=== PATIENT | female | born 1995 | race African-American/Black ===

== ENCOUNTER 2018-08-10 04:02 | Observation (INO) | payer MEDICAID ==
--- NOTE | 2018-08-10 04:09 | EDPHY ---
H & P Stated Complaint: R flank pain, urgency, retention, Source: Patient - Personal History LMP (Females 10-55): 15-21 Days Ago Current Tetanus Diphtheria and Acellular Pertussis (TDAP): Yes - Medical/Surgical History Hx Asthma: No Hx Chronic Respiratory Disease: No Hx Diabetes: No Hx Cardiac Disease: No Hx Renal Disease: No Hx Cirrhosis: No Hx Alcoholism: No Hx HIV/AIDS: No Hx Splenectomy or Spleen Trauma: No Other PMH: Denies - Social History Smoking Status: Light smoker Time Seen by Provider: 08/10/18 04:09 HPI/ROS: HPI CHIEF COMPLAINT: Right flank pain. Foul smell to urine. HISTORY OF PRESENT ILLNESS: This is a 22-year-old female who is otherwise healthy denies any significant medical history except for history of urinary tract infections. Patient presents emergency room stating that for the past week she noticed a foul smell to her urine with tried to ignore. She also drank large amounts of fluids. However symptoms progressed with further foul- smelling urine, urinary frequency. And now reports that she has some right flank pain. States she developed this earlier this morning she tried to get up and realized that she had right flank pain. Has nausea. No fever denies vomiting. Denies chest pain or shortness of breath. Past Medical History: Denies significant medical history Past Surgical History: Denies significant surgical history Social History: Denies drugs alcohol tobacco. Family History: Noncontributory ROS REVIEW OF SYSTEMS: 10 Systems were reviewed and negative with the exception of the elements mentioned in the history of present illness. Exam Constitutional nontoxic triage nursing summary reviewed, vital signs reviewed, awake/alert. Eyes normal conjunctivae and sclera, EOMI, PERRLA. HENT normal inspection, atraumatic, moist mucus membranes, no epistaxis, neck supple/ no meningismus, no raccoon eyes. Respiratory clear to auscultation bilaterally, normal breath sounds, no respiratory distress, no wheezing. Cardiovascular rate normal, regular rhythm, no murmur, no edema, distal pulses normal. Gastrointestinal soft, non-tender, no rebound, no guarding, normal bowel sounds, no distension, no pulsatile mass. Genitourinary mild right CVA tenderness. Musculoskeletal no midline vertebral tenderness, full range of motion, no calf swelling, no tenderness of extremities, no meningismus, good pulses, neurovascularly intact. Skin pink, warm, & dry, no rash, skin atraumatic. Neurologic awake, alert and oriented x 3, AAOx3, moves all 4 extremities equally, motor intact, sensory intact, CN II-XII intact, normal cerebellar, normal vision, normal speech. Psychiatric normal mood/affect. Heme/Lymph/Immune no lymphadenopathy. Differential Diagnosis: Differential diagnosis includes but is not limited to and in no particular order: Urinary tract infection, Bowel obstruction, appendicitis, gallbladder disease, diverticulitis, colitis, enteritis, perforated viscus, gastritis, GERD, esophagitis, urinary tract infection, pyelonephritis, kidney stones Medical Decision Making: Plan for this patient IV establishment IV fluid bolus 1 L normal saline, basic blood work, UA. Re-evaluate. Re-evaluation: Urinalysis reviewed concerning for pyelonephritis. Given the patient has isolated right flank pain and urinalysis with blood will perform CT scan abdomen pelvis without contrast rule out kidney stone or infected stone. Urine culture sent. [address] scan abdomen pelvis without contrast faxed me by direct Radiology at 5:13 a.m. This shows mild perinephric edema reflect pyelonephritis ascending UTI. Mild bladder wall thickening consistent with cystitis. Additionally there is a jejunal intussusception likely transient. Mild hepatomegaly 528AM: Patient still complaining of right-sided flank pain I have ordered her IV Toradol. Urinalysis reviewed and urine culture sent. 1 g set Rocephin ordered Discussed results with patient. Discussed given her pain, cystitis, pyelonephritis it would be reasonable to admit her for observation today for IV fluids pain control and IV antibiotics. She is agreeable this plan. 0558: Given this patient's pain and ongoing, chills, UTI with pyelo on CT plan for hospital admission today. Patient agrees for this. IV Rocephin given. Hospitalist service consult Dr. Roche Agrees to admit. ([facility]) Constitutional: Initial Vital Signs Temperature (C) 37.1 C 08/10/18 04:05 Heart Rate 96 08/10/18 04:05 Respiratory Rate 19 08/10/18 04:05 Blood Pressure 136/87 H 08/10/18 04:05 O2 Sat (%) 97 08/10/18 04:05 O2 Delivery Mode Room Air Allergies/Adverse Reactions: No Known Allergies Allergy (Verified 08/10/18 08:22) Home Medications: Medication Instructions Recorded Ibuprofen [Motrin (*)] 400 mg PO Q4HRS PRN tab 08/11/18 levOFLOXACIN [levAQUIN (*)] 750 mg PO DAILY #7 tab 08/11/18 Medical Decision Making Other Provider: I received a call from Dr. White with over-read of CT scan, indicating mildly dilated R ureter and IVC, which could be caused by pyelonephritis or possible renal vein thrombosis. The patient is no longer in the ED and has been admitted. I relayed this information to Nette Corbett NP via phone who is currently taking care of this patient. (Uri Rowe) - Data Points Laboratory Results: Laboratory Results 08/10/18 04:25 08/10/18 04:25 Microbiology Results: MICROBIOLOGY 08/10/18 04:15 Urine,Clean Catch Urine Culture - Preliminary Escherichia Coli Two [place] Types Medications Given: Discontinued Medications Sodium Chloride (Ns) 1,000 mls @ 0 mls/hr IV EDNOW ONE; Wide Open PRN Reason: Protocol Stop: 08/10/18 04:15 Last Admin: 08/10/18 05:10 Dose: 1,000 mls Ceftriaxone Sodium/Dextrose (Rocephin 1 Gm (Premix)) 50 mls @ 100 mls/hr IV EDNOW ONE PRN Reason: Protocol Stop: 08/10/18 05:17 Last Admin: 08/10/18 05:10 Dose: 50 mls Sodium Chloride (Ns) 1,000 mls @ 0 mls/hr IV ONCE ONE PRN Reason: Wide Open Stop: 08/10/18 05:24 Last Admin: 08/10/18 05:44 Dose: 1,000 mls Sodium Chloride (Ns) 1,000 mls @ 75 mls/hr IV CONT SIVA Stop: 02/06/19 05:59 Last Admin: 08/10/18 14:43 Dose: 1,000 mls Ceftriaxone Sodium/Dextrose (Rocephin 1 Gm (Premix)) 50 mls @ 100 mls/hr IV Q24H SIVA PRN Reason: Protocol Stop: 09/10/18 04:59 Last Admin: 08/11/18 05:55 Dose: 50 mls Ketorolac Tromethamine (Toradol) 15 mg IVP EDNOW ONE Stop: 08/10/18 05:28 Last Admin: 08/10/18 05:44 Dose: 15 mg Nicotine (Nicoderm Cq) 14 mg TD ONCE ONE Stop: 08/11/18 10:16 Last Admin: 08/11/18 10:13 Dose: 14 mg Oxycodone HCl (Oxycodone Ir) 5 - 10 mg PO Q3HRS PRN PRN Reason: Pain, Severe Able to Take PO Stop: 08/20/18 05:56 Last Admin: 08/10/18 21:51 Dose: 5 mg Departure - Departure Disposition: [facility] Acute Clinical Impression: Acute pyelonephritis Condition: Fair
[2018-08-10] MEDS ORDERED: NS 1,000 ML IV ONE ×2 (04:14→05:23)
[2018-08-10 04:43] LABS: PLATELET COUNT 222 10^3/uL (150-400)
[2018-08-10] MEDS ORDERED: KETOROLAC 15 MG/1 ML SDV IVP ONE (05:27)
[2018-08-10] MEDS ORDERED: ONDANSETRON DISINTEGRATING 4 MG TAB PO PRN (05:57)
[2018-08-10] MEDS ORDERED: IBUPROFEN 200 MG TAB PO PRN (05:57)
[2018-08-10] MEDS ORDERED: ACETAMINOPHEN 325 MG TAB PO PRN (05:57)
[2018-08-10] MEDS ORDERED: ONDANSETRON 4 MG/2 ML VIAL IVP PRN (05:57)
[2018-08-10] MEDS ORDERED: oxyCODONE IR 5 MG TAB PO PRN (05:57)
--- NOTE | 2018-08-10 06:24 | PDGENHP ---
History and Physical - Chief Complaint Flank pain - History of Present Illness 22 yo F presents with flank pain and chills. The patient felt well until she woke up this morning with severe R sided flank pain and chills. She denies dysuria. In the ED her UA is grossly infectious. CT abdomen obtained for evaluation demonstrates R perinephric edema consistent with pyelonephritis. She is hemodynamically stable at this time. She denies medical problems and takes no medications. Case discussed with ED physician Dr. Hallman; records reviewed and summarized above. History Information - Allergies/Home Medication List Allergies/Adverse Reactions: No Known Allergies Allergy (Unverified 08/10/18 04:05) I have personally reviewed and updated: family history, medical history - Past Medical History no pertinent PMH - Surgical History Reports: no pertinent surgical hx - Family History Additional family history: Asked, denies - Social History Smoking Status: Light smoker Review of Systems Review of Systems: ROS: 10pt was reviewed & negative except for what was stated in HPI & below Physical Exam Physical Exam: Temp Pulse Resp BP Pulse Ox 36.8 C 90 18 145/92 H 99 08/10/18 05:48 08/10/18 05:48 08/10/18 05:48 08/10/18 05:48 08/10/18 05:48 Constitutional: appears nourished, uncomfortable Eyes: PERRL, EOMI Ears, Nose, Mouth, Throat: moist mucous membranes, no oral mucosal ulcers Cardiovascular: regular rate and rhythym, no murmur, rub, or gallop Respiratory: no respiratory distress, clear to auscultation Gastrointestinal: normoactive bowel sounds, soft, non-tender abdomen Genitourinary: no bladder tenderness, other (+R CVAT) Skin: warm, normal color Musculoskeletal: full muscle strength, no muscle tenderness Neurologic: AAOx3, CN II-XII Intact Psychiatric: interacting appropriately, not anxious Lab Data & Imaging Review 08/10/18 04:25 08/10/18 04:25 WBC 9.20 10^3/uL (3.80-9.50) 08/10/18 04:25 RBC 4.93 10^6/uL (4.18-5.33) 08/10/18 04:25 Hgb 12.2 g/dL (12.6-16.3) L 08/10/18 04:25 Hct 38.4 % (38.0-47.0) 08/10/18 04:25 MCV 77.9 fL (81.5-99.8) L 08/10/18 04:25 MCH 24.7 pg (27.9-34.1) L 08/10/18 04:25 MCHC 31.8 g/dL (32.4-36.7) L 08/10/18 04:25 RDW 19.1 % (11.5-15.2) H 08/10/18 04:25 Plt Count 222 10^3/uL (150-400) 08/10/18 04:25 MPV 10.7 fL (8.7-11.7) 08/10/18 04:25 Neut % (Auto) 82.1 % (39.3-74.2) H 08/10/18 04:25 Lymph % (Auto) 12.7 % (15.0-45.0) L 08/10/18 04:25 [place] % (Auto) 3.8 % (4.5-13.0) L 08/10/18 04:25 Eos % (Auto) 0.8 % (0.6-7.6) 08/10/18 04:25 Baso % (Auto) 0.4 % (0.3-1.7) 08/10/18 04:25 Nucleat RBC Rel Count 0.0 % (0.0-0.2) 08/10/18 04:25 Absolute Neuts (auto) 7.55 10^3/uL (1.70-6.50) H 08/10/18 04:25 Absolute Lymphs (auto) 1.17 10^3/uL (1.00-3.00) 08/10/18 04:25 Absolute Monos (auto) 0.35 10^3/uL (0.30-0.80) 08/10/18 04:25 Absolute Eos (auto) 0.07 10^3/uL (0.03-0.40) 08/10/18 04:25 Absolute Basos (auto) 0.04 10^3/uL (0.02-0.10) 08/10/18 04:25 Absolute Nucleated RBC 0.00 10^3/uL (0-0.01) 08/10/18 04:25 Immature Gran % 0.2 % (0.0-1.1) 08/10/18 04:25 Immature Gran # 0.02 10^3/uL (0.00-0.10) 08/10/18 04:25 Sodium 139 mEq/L (135-145) 08/10/18 04:25 Potassium 3.8 mEq/L (3.5-5.2) 08/10/18 04:25 Chloride 108 mEq/L (97-110) 08/10/18 04:25 Carbon Dioxide 23 mEq/l (22-31) 08/10/18 04:25 Anion Gap 8 mEq/L (6-14) 08/10/18 04:25 BUN 12 mg/dL (7-23) 08/10/18 04:25 Creatinine 0.8 mg/dL (0.6-1.0) 08/10/18 04:25 Estimated GFR > 60 08/10/18 04:25 Glucose 105 mg/dL (70-100) H 08/10/18 04:25 Calcium 9.1 mg/dL (8.5-10.4) 08/10/18 04:25 Total Bilirubin 0.5 mg/dL (0.1-1.4) 08/10/18 04:25 Conjugated Bilirubin 0.2 mg/dL (0.0-0.5) 08/10/18 04:25 Unconjugated Bilirubin 0.3 mg/dL (0.0-1.1) 08/10/18 04:25 AST 17 IU/L (14-46) 08/10/18 04:25 ALT 21 IU/L (9-52) 08/10/18 04:25 Alkaline Phosphatase 100 IU/L (38-126) 08/10/18 04:25 Total Protein 7.5 g/dL (6.3-8.2) 08/10/18 04:25 Albumin 4.1 g/dL (3.5-5.0) 08/10/18 04:25 Lipase 67 IU/L (23-300) 08/10/18 04:25 Beta HCG, Qual NEGATIVE 08/10/18 04:25 Urine Color YELLOW 08/10/18 04:10 Urine Appearance MODERATELY TURBID 08/10/18 04:10 Urine pH 5.0 (5.0-7.5) 08/10/18 04:10 Ur Specific [place] 1.012 (1.002-1.030) 08/10/18 04:10 Urine Protein 2+ (NEGATIVE) H 08/10/18 04:10 Urine Ketones NEGATIVE (NEGATIVE) 08/10/18 04:10 Urine Blood 3+ (NEGATIVE) H 08/10/18 04:10 Urine Nitrate POSITIVE (NEGATIVE) H 08/10/18 04:10 Urine Bilirubin NEGATIVE (NEGATIVE) 08/10/18 04:10 Urine Urobilinogen NEGATIVE EU (0.2-1.0) 08/10/18 04:10 Ur Leukocyte Esterase 3+ (NEGATIVE) H 08/10/18 04:10 Urine RBC 50-182 /hpf (0-3) H 08/10/18 04:10 Urine WBC 50-182 /hpf (0-3) H 08/10/18 04:10 Ur Epithelial Cells 1+ /lpf (NONE-1+) 08/10/18 04:10 Urine Bacteria TRACE /hpf (NONE SEEN) H 08/10/18 04:10 Urine Mucus TRACE /lpf (NONE-1+) 08/10/18 04:10 Urine Glucose NEGATIVE (NEGATIVE) 08/10/18 04:10 Assessment & Plan Assessment: 22 yo F presents with pyelonephritis. Plan: 1. Pyelonephritis - Presents with chills and R flank pain. UA is grossly infectious appearing and CT (personally reviewed/interpreted) demonstrates R perinephric edema. - Admit for observation - CTX 1 g qD - Blood and urine cultures ordered - Continue IVF Diet -Regular Code - Full Ppx - Low risk, ambulate TID Dispo - Admit under observation status
[2018-08-10] MEDS: NS 1,000 ML IV SCH ×2 (07:57→14:43)
--- NOTE | 2018-08-10 09:22 | ASMTCMCOM ---
CM Note CM Note Notes: Pt is a 22 y/o female admitted for flank pain. Pt is currently on ivabx. It is uncertain if pt will require ivabx at time of d/c. CM available w/ assistance to set up outpatient infusion or home infusion services. Date Signed: 08/10/2018 09:22 AM Electronically Signed By:GERALD Viramontes
--- NOTE | 2018-08-10 15:20 | HOSPPROG ---
Hospitalist Progress Note Assessment/Plan: 22 yo F presents with flank pain and chills. The patient felt well until she woke up with severe R sided flank pain and chills. She denies dysuria. CT abdomen obtained for evaluation demonstrates R perinephric edema consistent with pyelonephritis. First encounter, chart reviewed. *Pyelonephritis - Ceftriaxone - Blood and urine cultures pending - Continue IVF -reviewed w Alejandra the importance of going to the bathroom after sexual activity, wiping from front to back *concern for right renal vein thrombosis, dilated r ureter, r IVC dilated -recommendation is for a CT scan w contrast *morbid obesity -BMI is 41 *Cannibis use *plan: will obtain a CT to further evaluate the above, >30 minutes f/u care Subjective: Alejandra is feeling much better after getting fluids. Pain is better w anti-inflammatory. Objective: Vital Signs Temp Pulse Resp BP Pulse Ox 37.3 C 94 16 90/74 L 94 08/10/18 11:21 08/10/18 11:21 08/10/18 11:21 08/10/18 11:21 08/10/18 11:21 08/09/18 08/10/18 08/11/18 05:59 05:59 05:59 Intake Total 2000 Output Total 500 Balance 1500 - Physical Exam Constitutional: no apparent distress, appears nourished, not in pain, obese Eyes: PERRL Ears, Nose, Mouth, Throat: hearing normal Cardiovascular: regular rate and rhythym Respiratory: no respiratory distress Gastrointestinal: normoactive bowel sounds Skin: warm Musculoskeletal: full muscle strength Neurologic: AAOx3 Psychiatric: interacting appropriately ICD10 Worksheet Patient Problems: Problems Problem Status Onset Acute pyelonephritis Acute
[2018-08-10] MEDS ORDERED: IOHEXOL 300 mgI/ML (OMNIPAQUE) 150 ML BTL IV ONE (16:41)
[2018-08-11 08:21] VITALS: BP 121/94
[2018-08-11] MEDS ORDERED: NICOTINE 21 MG/24 HR PATCH TD ONE (09:53)
[2018-08-11] MEDS ORDERED: NICOTINE 14 MG/24 HR PATCH TD ONE (10:15)
--- NOTE | 2018-08-11 10:21 | HOSPPROG ---
Hospitalist Progress Note Assessment/Plan: 22 yo F presents with flank pain and chills. The patient felt well until she woke up with severe R sided flank pain and chills. She denies dysuria. CT abdomen obtained for evaluation demonstrates R perinephric edema consistent with pyelonephritis. First encounter, chart reviewed. *Pyelonephritis - Ceftriaxone - Blood cultures pending -urine culture shows e coli *concern for right renal vein thrombosis, dilated r ureter -CT scan w contrast shows no thrombosis *morbid obesity -BMI is 41 *Cannibis use *nicotine dependence *plan: dc home, with f[facility], CM made her an appt. Reviewed w her the side effects of Levaquin. Subjective: Alejandra is feeling well, no c/o pain. Objective: Vital Signs Temp Pulse Resp BP Pulse Ox 36.9 C 77 16 121/94 H 96 08/11/18 08:00 08/11/18 08:00 08/11/18 08:00 08/11/18 08:00 08/11/18 08:00 08/10/18 08/11/18 08/12/18 05:59 05:59 05:59 Intake Total 2500 Output Total 500 Balance 2000 - Physical Exam Constitutional: no apparent distress, obese Eyes: PERRL Ears, Nose, Mouth, Throat: hearing normal Respiratory: no respiratory distress Skin: warm Musculoskeletal: full muscle strength Neurologic: AAOx3 Psychiatric: interacting appropriately ICD10 Worksheet Patient Problems: Problems Problem Status Onset Acute pyelonephritis Acute
--- NOTE | 2018-08-11 10:47 | ASMTLACE ---
[facility] Length of stay for Answers: 1 day current admission Acuity / Level of Answers: No Care: Did the patient have an inpatient admission? Comorbidities - select Answers: Opioid dependence all that apply / Chronic pain # of Emergency department Answers: 1-2 visits in the last 6 months Social determinants Answers: Mental health diagnosis (anxiety, depression, pers onality disorders, etc.) Score: 9 Date Signed: 08/11/2018 10:47 AM Electronically Signed By:GERALD Viramontes
--- NOTE | 2018-08-11 10:50 | ASMTCMCOM ---
ZACH Note ZACH Note Notes: Pts case discussed w/ Nette Corbett NP. Pt is being d/c'd today. CM made pt a [facility]. CM provided pt w/ the appointment time and date. [facility] [address] [place] [id number] Cecilia Ford NP 08/15/18 at 10:45AM Please bring your photo ID, insurance card, co pay, list of all meds and hospital d/c paperwork. Date Signed: 08/11/2018 10:49 AM Electronically Signed By:GERALD Viramontes
--- NOTE | 2018-08-11 11:00 | GDS ---
[f rep st] DISCHARGE SUMMARY DISCHARGE DIAGNOSES: 1. Acute pyelonephritis. 2. Initial concern for right renal thrombosis, dilated right ureter. 3. Morbid obesity. 4. Cannabis use. 5. Nicotine dependence. HISTORY OF PRESENT ILLNESS: Briefly, the patient is a very sweet 22-year-old female who presented wi th flank pain and chills. She woke up with severe right-sided flank pain. A CT of the abdomen was o btained for evaluation and noted that she had right perinephric edema consistent with pyelonephritis. In addition, there was concern that she had a dilated right ureter and a right vein thrombosis. A CT scan was performed with contrast that showed no thrombosis. Today, she is feeling markedly better . She will be discharged home. HOSPITAL COURSE: 1. Pyelonephritis. She was treated with ceftriaxone. Her urine culture shows E coli. Her blood cu ltures are pending. 2. Concern for renal vein thrombosis, dilated right ureter. CT scan does not note this. 3. Morbid obesity. She has a BMI of 41. 4. Cannabis use ongoing. 5. Nicotine dependence. Encouraged her to completely stop smoking. DISCHARGE CONDITION: Stable. Blood pressure is 121/94, heart rate is 77, respiratory rate of 16, O2 sats on room air 96%, temperature is 36.9 Celsius. MEDICATIONS AT DISCHARGE: Please see the EMR. DISCHARGE INSTRUCTIONS: 1. Follow up with her primary care doctor at [facility]. We are arranging an appointment now f or her for followup. 2. Return to the ER if she has worsening flank pain, fever, vomiting, not doing well. 3. The Levaquin can affect her tendons. To stop taking if she has pain, especially in the Achilles tendon. 4. After intercourse, always to use the bathroom. /[id number]/MODL
== END 2018-08-11 11:12 | disposition home or self-care (01) ==
LOC: F3E 07:48
PROVIDERS: ADMIT Student in an Organized Health Care Education/Training Program; ATTEND Student in an Organized Health Care Education/Training Program
DX: N10 Acute pyelonephritis (principal); N28.82 Megaloureter; E66.01 Morbid (severe) obesity due to excess calories; F12.90 Cannabis use, unspecified, uncomplicated; F17.200 Nicotine dependence, unspecified, uncomplicated; E86.9 Volume depletion, unspecified; Z68.41 Body mass index [BMI] 40.0-44.9, adult
CPT/HCPCS: 74176; 74177; 96361; 96365; 96375; 96376; 99285; G0378; J0696; J1885; Q9967